=== PATIENT | male | born 1980 | race Two or more races ===

== ENCOUNTER → 2021-12-14 | Outpatient (CLI) | payer OTHER ==
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
== END ==
LOC: RAD 14:16
PROVIDERS: ATTEND Nurse Practitioner Family
DX: M25.531 Pain in right wrist (principal); M25.512 Pain in left shoulder; M25.521 Pain in right elbow; M25.522 Pain in left elbow
CPT/HCPCS: 73030; 73110; 73080-50